=== PATIENT | female | born 1990 | race African-American/Black ===

== ENCOUNTER 2023-10-24 18:15 | Emergency (ER) | payer BC ==
[~2023-10-24] VITALS: Ht 157.5 cm; Wt 65.8 kg
[2023-10-24 18:35] VITALS: BP_SYST 146; PULSE 76; RESP 16; TEMP 98.2; O2SAT 98
[2023-10-24 19:04] LABS: BASOPHILS % (AUTO) 0.3 % (0.0-2.0); EOSINOPHILS # (AUTO) 0.1 K/uL (0.0-0.4); EOSINOPHILS % (AUTO) 2.5 % (0.0-4.0); HEMATOCRIT 42.4 % (36-48); HEMOGLOBIN 14.7 g/dL (12.0-16.0); LYMPHOCYTES # (AUTO) 2.1 K/uL (1.0-5.5); LYMPHOCYTES % (AUTO) 36.5 % (20.5-51.5); MEAN CORPUSCULAR HEMOGLOBIN 31 pg (27-31); MEAN CORPUSCULAR HGB CONC 35 % (32-36); MEAN CORPUSCULAR VOLUME 90 fL (79.0-98.0); MONOCYTES # (AUTO) 0.5 K/uL (0.0-1.0); MONOCYTES % (AUTO) 8.6 % (1.7-9.3); NEUTROPHILS % (AUTO) 52.1 % (40.0-70.0); PLATELET COUNT (AUTO) 269 K/uL (130-430); RED BLOOD CELL COUNT(AUTO) 4.69 MIL/uL (4.2-6.2); RED CELL DISTRIBUTION WIDTH 13.5 % (9.0-15.0); WHITE BLOOD COUNT (AUTO) 5.8 K/uL (4.8-10.8)
[2023-10-24 19:08] LABS: BILIRUBIN,URINE NEGATIVE (NEGATIVE); BLOOD, URINE NEGATIVE (NEGATIVE); CLARITY/URINE CLEAR (CLEAR); COLOR,URINE YELLOW (YELLOW); GLUCOSE,URINE NEGATIVE (NEGATIVE); KETONES,URINE NEGATIVE (NEGATIVE); LEUKOCYTE ESTERASE ,URINE NEGATIVE (NEGATIVE); NITRITE, URINE NEGATIVE (NEGATIVE); PROTEIN URINE NEGATIVE (NEGATIVE); UROBILINOGEN,URINE 0.2 (0.2-1.0)
[2023-10-24 19:14] LABS: CALCIUM 8.9 mg/dL (8.4-11.0); CREATININE 0.88 mg/dL (0.55-1.30); POTASSIUM 3.6 mmol/L (3.5-5.1)
[2023-10-24] MEDS: KETOROLAC TROMETHAMINE 30 MG VIAL IM ONE (20:47)
[2023-10-24 21:29] VITALS: BP_SYST 112; PULSE 64; RESP 19; TEMP 97.6; O2SAT 99
== END 2023-10-24 21:29 | disposition home or self-care (01) ==
LOC: SED 18:15
DX: D25.9 Leiomyoma of uterus, unspecified (principal)
CPT/HCPCS: 99285; 74176; 80048; 81001; 84702; 85025; 36415; 81025; 96372; 81003; J1885

== ENCOUNTER 2023-12-14 20:43 | Emergency (ER) | payer BC ==
[~2023-12-14] VITALS: Ht 157.5 cm; Wt 68.0 kg
[2023-12-14 20:46] VITALS: BP_SYST 134; PULSE 67; RESP 16; TEMP 98.1; O2SAT 99
[2023-12-14 22:53] LABS: SERUM HCG (QUALITATIVE) NEGATIVE (NEGATIVE)
[2023-12-14 22:54] LABS: BASOPHILS # (AUTO) 0.1 K/uL (0.0-0.2); BASOPHILS % (AUTO) 0.8 % (0.0-2.0); EOSINOPHILS # (AUTO) 0.2 K/uL (0.0-0.4); EOSINOPHILS % (AUTO) 2.9 % (0.0-4.0); HEMATOCRIT 42.1 % (36-48); HEMOGLOBIN 14.4 g/dL (12.0-16.0); LYMPHOCYTES # (AUTO) 2.5 K/uL (1.0-5.5); LYMPHOCYTES % (AUTO) 38.7 % (20.5-51.5); MEAN CORPUSCULAR HEMOGLOBIN 31 pg (27-31); MEAN CORPUSCULAR HGB CONC 34 % (32-36); MEAN CORPUSCULAR VOLUME 91 fL (79.0-98.0); MONOCYTES # (AUTO) 0.4 K/uL (0.0-1.0); MONOCYTES % (AUTO) 6.6 % (1.7-9.3); NEUTROPHILS # (AUTO) 3.2 K/uL (1.8-7.7); PLATELET COUNT (AUTO) 226 K/uL (130-430); RED BLOOD CELL COUNT(AUTO) 4.64 MIL/uL (4.2-6.2); RED CELL DISTRIBUTION WIDTH 13.3 % (9.0-15.0); WHITE BLOOD COUNT (AUTO) 6.3 K/uL (4.8-10.8)
[2023-12-14 22:56] LABS: CALCIUM 8.5 mg/dL (8.4-11.0); CREATININE 0.94 mg/dL (0.55-1.30); POTASSIUM 3.8 mmol/L (3.5-5.1)
[2023-12-14 23:07] LABS: ALBUMIN 3.6 g/dL (3.4-4.8); TOTAL BILIRUBIN 0.2 mg/dL (0.0-1.0); TOTAL PROTEIN, SERUM 7.2 g/dL (6.4-8.3)
[2023-12-14 23:32] LABS: BILIRUBIN,URINE NEGATIVE (NEGATIVE); BLOOD, URINE NEGATIVE (NEGATIVE); CLARITY/URINE CLEAR (CLEAR); COLOR,URINE YELLOW (YELLOW); GLUCOSE,URINE NEGATIVE (NEGATIVE); KETONES,URINE NEGATIVE (NEGATIVE); LEUKOCYTE ESTERASE ,URINE NEGATIVE (NEGATIVE); NITRITE, URINE NEGATIVE (NEGATIVE); PH,URINE 6.5 (5.0-8.0); PROTEIN URINE NEGATIVE (NEGATIVE); UROBILINOGEN,URINE 0.2 (0.2-1.0)
[2023-12-15 00:05] VITALS: BP_SYST 136; PULSE 70; RESP 18; TEMP 98; O2SAT 98
== END 2023-12-15 00:05 | disposition home or self-care (01) ==
LOC: SED 20:43
DX: N91.2 Amenorrhea, unspecified (principal); R25.2 Cramp and spasm; R10.30 Lower abdominal pain, unspecified; R11.0 Nausea; Z79.899 Other long term (current) drug therapy
CPT/HCPCS: 36415; 80053; 81001; 81003; 81025; 83690; 84702; 84703; 85025; 99283

== ENCOUNTER 2024-02-08 07:10 | Emergency (ER) | payer BC ==
[~2024-02-08] VITALS: Ht 157.5 cm; Wt 68.5 kg
[2024-02-08 07:17] VITALS: BP_SYST 129; PULSE 75; RESP 16; TEMP 97.9; O2SAT 98
[2024-02-08 08:04] LABS: BILIRUBIN,URINE NEGATIVE (NEGATIVE); BLOOD, URINE NEGATIVE (NEGATIVE); CLARITY/URINE CLEAR (CLEAR); COLOR,URINE YELLOW (YELLOW); GLUCOSE,URINE NEGATIVE (NEGATIVE); KETONES,URINE TRACE (NEGATIVE); LEUKOCYTE ESTERASE ,URINE NEGATIVE (NEGATIVE); NITRITE, URINE NEGATIVE (NEGATIVE); PROTEIN URINE TRACE (NEGATIVE); UROBILINOGEN,URINE 0.2 (0.2-1.0)
[2024-02-08 08:06] LABS: BASOPHILS % (AUTO) 0.7 % (0.0-2.0); EOSINOPHILS # (AUTO) 0.2 K/uL (0.0-0.4); EOSINOPHILS % (AUTO) 3.4 % (0.0-4.0); HEMATOCRIT 42.6 % (36-48); HEMOGLOBIN 14.9 g/dL (12.0-16.0); LYMPHOCYTES # (AUTO) 1.4 K/uL (1.0-5.5); LYMPHOCYTES % (AUTO) 27.4 % (20.5-51.5); MEAN CORPUSCULAR HEMOGLOBIN 31 pg (27-31); MEAN CORPUSCULAR HGB CONC 35 % (32-36); MEAN CORPUSCULAR VOLUME 89 fL (79.0-98.0); MONOCYTES # (AUTO) 0.5 K/uL (0.0-1.0); MONOCYTES % (AUTO) 9.4 % (1.7-9.3); NEUTROPHILS # (AUTO) 3.1 K/uL (1.8-7.7); NEUTROPHILS % (AUTO) 59.1 % (40.0-70.0); PLATELET COUNT (AUTO) 246 K/uL (130-430); RED BLOOD CELL COUNT(AUTO) 4.77 MIL/uL (4.2-6.2); RED CELL DISTRIBUTION WIDTH 12.9 % (9.0-15.0); WHITE BLOOD COUNT (AUTO) 5.2 K/uL (4.8-10.8)
[2024-02-08] MEDS: cefTRIAXone 1 GM IVPB PREMIX 50 ML IV ONE (08:11)
[2024-02-08] MEDS: NACL 0.9% 1,000 ML IV ONE (08:11)
[2024-02-08] MEDS: KETOROLAC TROMETHAMINE 15 MG VIAL IVP ONE (08:27)
[2024-02-08 08:31] LABS: CALCIUM 8.8 mg/dL (8.4-11.0); CREATININE 0.82 mg/dL (0.55-1.30); POTASSIUM 3.8 mmol/L (3.5-5.1)
[2024-02-08] MEDS: DIPHENHYDRAMINE HCL 50 MG CAPSULE PO ONE (09:03)
[2024-02-08] MEDS ORDERED: SULF1TAB48 PO (09:04)
[2024-02-08 09:06] LABS: BACTERIA,URINE RARE /HPF (None Seen); RBC,URINE 0-3 /HPF (0-3); WBC,URINE 0-3 /HPF (0-3)
[2024-02-08 09:15] VITALS: BP_SYST 129; PULSE 75; RESP 16; TEMP 97.9; O2SAT 98
== END 2024-02-08 09:16 | disposition home or self-care (01) ==
LOC: SED 07:10
DX: L03.032 Cellulitis of left toe (principal); T36.1X5A Adverse effect of cephalosporins and other beta-lactam antibiotics, initial encounter; Y92.89 Other specified places as the place of occurrence of the external cause
CPT/HCPCS: 99284; 96365; 96375; 80048; 81001; 83690; 85025; 87040; 36415; 81025; 83605; 81000; 81015; Q0163; J0696; J1885

== ENCOUNTER 2024-05-04 20:51 | Emergency (ER) | payer BC ==
[~2024-05-04] VITALS: Ht 162.6 cm; Wt 67.1 kg
[~2024-05-04 20:51] MED LIST: SULF1TAB48 PO
[2024-05-04 21:02] VITALS: BP_SYST 124; PULSE 80; RESP 17; TEMP 97.6; O2SAT 98
[2024-05-04 21:41] LABS: BASOPHILS # (AUTO) 0.1 K/uL (0.0-0.2); EOSINOPHILS # (AUTO) 0.1 K/uL (0.0-0.4); EOSINOPHILS % (AUTO) 2.4 % (0.0-4.0); HEMATOCRIT 43.6 % (36-48); HEMOGLOBIN 15.1 g/dL (12.0-16.0); LYMPHOCYTES # (AUTO) 2.4 K/uL (1.0-5.5); LYMPHOCYTES % (AUTO) 42.1 % (20.5-51.5); MEAN CORPUSCULAR HEMOGLOBIN 31 pg (27-31); MEAN CORPUSCULAR HGB CONC 35 % (32-36); MEAN CORPUSCULAR VOLUME 90 fL (79.0-98.0); MONOCYTES # (AUTO) 0.4 K/uL (0.0-1.0); MONOCYTES % (AUTO) 7.8 % (1.7-9.3); NEUTROPHILS # (AUTO) 2.7 K/uL (1.8-7.7); NEUTROPHILS % (AUTO) 46.7 % (40.0-70.0); PLATELET COUNT (AUTO) 269 K/uL (130-430); RED BLOOD CELL COUNT(AUTO) 4.82 MIL/uL (4.2-6.2); RED CELL DISTRIBUTION WIDTH 12.9 % (9.0-15.0); WHITE BLOOD COUNT (AUTO) 5.7 K/uL (4.8-10.8)
[2024-05-04 21:45] LABS: BILIRUBIN,DIRECT 0.1 mg/dL (0.0-0.3); CALCIUM 9.3 mg/dL (8.4-11.0); CREATININE 0.98 mg/dL (0.55-1.30); POTASSIUM 4.2 mmol/L (3.5-5.1); TOTAL BILIRUBIN 0.3 mg/dL (0.0-1.0); TOTAL PROTEIN, SERUM 7.6 g/dL (6.4-8.3)
[2024-05-04 22:01] LABS: BILIRUBIN,URINE NEGATIVE (NEGATIVE); CLARITY/URINE CLEAR (CLEAR); COLOR,URINE YELLOW (YELLOW); GLUCOSE,URINE NEGATIVE (NEGATIVE); KETONES,URINE NEGATIVE (NEGATIVE); LEUKOCYTE ESTERASE ,URINE NEGATIVE (NEGATIVE); NITRITE, URINE NEGATIVE (NEGATIVE); PROTEIN URINE NEGATIVE (NEGATIVE); UROBILINOGEN,URINE 0.2 (0.2-1.0)
[2024-05-04 22:03] LABS: BLOOD, URINE TRACE (NEGATIVE)
[2024-05-04 22:10] LABS: RBC,URINE 0-3 /HPF (0-3)
[2024-05-04 22:11] LABS: BACTERIA,URINE None Seen /HPF (None Seen)
[2024-05-04] MEDS: NACL 0.9% 1,000 ML IV ONE (23:26)
[2024-05-04] MEDS: cefTRIAXone 1 GM IVPB PREMIX 50 ML IV ONE (23:26)
[2024-05-04] MEDS: KETOROLAC TROMETHAMINE 30 MG VIAL IVP ONE (23:36)
[2024-05-04] MEDS: MORPHINE 4 MG INJ. 4 MG/ML VIAL IVP ONE (23:40)
[2024-05-04] MEDS: DIPHENHYDRAMINE INJ 50 MG/ML VIAL IVP ONE (23:49)
[2024-05-05] MEDS ORDERED: NITR-85 PO (02:22)
[2024-05-05 02:28] VITALS: BP_SYST 109; PULSE 72; RESP 18; TEMP 97.3; O2SAT 100
[2024-05-06] MEDS ORDERED: CIPR500T5 PO (05:51)
== END 2024-05-05 02:28 | disposition home or self-care (01) ==
LOC: SED 20:51
DX: N39.0 Urinary tract infection, site not specified (principal); R10.9 Unspecified abdominal pain; Z88.1 Allergy status to other antibiotic agents; Z88.5 Allergy status to narcotic agent; Z79.899 Other long term (current) drug therapy; Z79.2 Long term (current) use of antibiotics
CPT/HCPCS: 36415; 80048; 80076; 81000; 81001; 81015; 81025; 85025; 87040; 96365; 96375; 99285; J0696; J1200; J1885; J2270